=== PATIENT | female | born 1965 | race Caucasian/White ===

== ENCOUNTER → 2020-02-08 | Outpatient (CLI) | payer BC | LOC: GMA MATASK 15:32 | PROVIDERS: ATTEND Family Medicine | DX: M79.643 Pain in unspecified hand (principal) ==

== ENCOUNTER 2020-04-01 05:47 | Day surgery (SDC) | payer BC ==
[2020-04-01] MEDS ORDERED: LIDOCAINE 1% 10 ML VIAL INJ ONE (05:48)
[2020-04-01] MEDS ORDERED: PROPOFOL 200 MG/20 ML VIAL IV ONE (05:48)
[2020-04-01] MEDS ORDERED: LACTATED RINGERS 1,000 ML ONE (06:42)
--- NOTE | 2020-04-01 09:38 | OP ---
DATE OF PROCEDURE: 04/01/20 PREOPERATIVE DIAGNOSIS: 1. Screening colonoscopy. POSTOPERATIVE DIAGNOSIS: 1. Normal colon. 2. Single diverticulum seen. PROCEDURE: 1. Colonoscopy. SURGEON: Jorge Del Rosario MD COMPLICATIONS: None. PLAN: Discharge. INDICATION: As stated. PROCEDURE: General anesthesia was induced in the lateral position. Digital rectal exam was normal. The colonoscope was inserted. With an adequate prep, we got with little difficulty to the cecum as identified by the cecum and terminal ileum. Upon withdrawal, all the mucosal surfaces appeared normal. No polyps were seen. A single diverticulum was seen in the sigmoid colon. Rectum was normal. There was small, uncomplicated hemorrhoids. The patient tolerated the procedure and was taken to Recovery to be discharged. #[id number] cc: Vijay Boyd MD [facility]
[2020-04-01 11:28] VITALS: BP 138/81; TEMP 97.5; O2SAT 98
== END 2020-04-01 09:58 | disposition home or self-care (01) ==
LOC: AMB 05:47
PROVIDERS: ATTEND Surgery
DX: K62.5 Hemorrhage of anus and rectum (principal); K57.30 Diverticulosis of large intestine without perforation or abscess without bleeding; K64.9 Unspecified hemorrhoids; J45.909 Unspecified asthma, uncomplicated; K59.00 Constipation, unspecified; F32.9 Major depressive disorder, single episode, unspecified; Z88.5 Allergy status to narcotic agent; Z88.8 Allergy status to other drugs, medicaments and biological substances; Z79.899 Other long term (current) drug therapy
CPT/HCPCS: 00811; 45378; J3490; J7120

== ENCOUNTER → 2020-04-11 | Outpatient (CLI) | payer BC ==
--- NOTE | 2020-04-12 16:00 | MRI ---
EXAM DESCRIPTION: Cervical Spine: MRI. CLINICAL HISTORY: 54 years Female HERNIATED DISC COMPARISON: MRI scan lumbar spine December 15. TECHNIQUE: Multiplanar, high-field MRI, multiple sequences, non-contrast Cervical spine. FINDINGS: C3-C4: Disc desiccation and minimal disc space loss. 2 mm grade 1 anterolisthesis. Bilateral uncinate spurs larger on the left. Moderate hypertrophic arthrosis with facet and mild to moderate left neuroforaminal stenosis. Right facet joint, and right neuroforamen are unremarkable. Mild canal narrowing. C4-C5: Disc signal normal and disc space maintained. Small right uncinate spur. Mild degeneration and hypertrophy in the left facet joint. Mild narrowing right neuroforamen canal and left neuroforamen are patent. C5-C6: Disc desiccation minimal disc space loss. Anterior bulging small endplate ridging spurs. Tiny posterior bulge. Right uncinate spur. Minimal hypertrophic arthrosis of the left facet joint. Mild to moderate right neural foramen. Mild canal narrowing with left neuroforamen patent. C6-C7: Disc desiccation and disc space loss to the right of midline. Right posterior 5 mm disc protrusion impressing on the right ventral cord and abutting the exiting right C7 nerve. Minimal hypertrophic arthrosis left facet joint. Mild left neural foraminal narrowing. C7-T1: Disc space and disc signal are unremarkable. Hypertrophic arthrosis of the left facet joint. Normal appearance of the right facet joint. Canal and right neuroforamen are patent with mild narrowing of the left neural foramen. Normal signal in the C2-C3 disc and T1-T2 disc disc with no bulging. Disc spaces preserved. Canal and neural foramina are patent. Facet joints are unremarkable. Spinal alignment C3-C5 kyphosis.. No cord compression or cord edema. Atlantoaxial joint mild arthrosis.. Base of the cerebellar tonsils is at the level of the foramen magnum. Paravertebral soft tissues unremarkable. Small lymph nodes.. Vertebral bodies are not compressed at any level. Normal marrow signal in the remaining vertebral bodies and the posterior elements. IMPRESSION: 1. Multiple levels of desiccated discs, degenerative hypertrophy in the facet joints predominantly on the left. 2. Grade 1 anterolisthesis C3-C4. Mild to moderate left neural foraminal stenosis. Correlate for left C4 radiculopathy. 3. Right posterior disc protrusion C6-C7 impressing on the ventral cord and possibly right C7 nerve. Electronically signed by: Rayray Noriega MD 04/12/2020 3:[address] [facility]
== END ==
LOC: MRI 09:11
PROVIDERS: ATTEND Neurological Surgery
DX: M50.30 Other cervical disc degeneration, unspecified cervical region (principal); M47.892 Other spondylosis, cervical region; M43.12 Spondylolisthesis, cervical region; M48.02 Spinal stenosis, cervical region; M50.223 Other cervical disc displacement at C6-C7 level; M51.26 Other intervertebral disc displacement, lumbar region